=== PATIENT | female | born 1945 | race African-American/Black ===

== ENCOUNTER 2017-11-13 06:34 | Day surgery (SDC) | payer OTHER ==
[2017-11-13] MEDS ORDERED: LIDOCAINE 2% 100 MG/5 ML UJET TP ONE (08:57)
== END 2017-11-13 09:50 | disposition home or self-care (01) ==
LOC: EDSEX 06:34 → MDS 06:34 → MMU 06:39 → MDS 09:50
PROVIDERS: ATTEND Internal Medicine Gastroenterology
DX: K57.30 Diverticulosis of large intestine without perforation or abscess without bleeding (principal); Z86.010 Personal history of colon polyps; E11.9 Type 2 diabetes mellitus without complications; I10 Essential (primary) hypertension; Z98.890 Other specified postprocedural states; Z79.899 Other long term (current) drug therapy; E66.9 Obesity, unspecified
CPT/HCPCS: 82948